=== PATIENT | male | born 1980 | race Caucasian/White ===

== ENCOUNTER 2018-11-25 18:34 | Emergency (ER) | payer OTHER ==
[~2018-11-25] VITALS: Ht 182.9 cm; Wt 81.8 kg
[2018-11-25] MEDS ORDERED: GLUCAGON,HUMAN RECOMBINANT 1 MG VIAL IVP ONE (20:15)
[2018-11-25 21:00] VITALS: BP 129/88
== END 2018-11-25 21:37 | disposition home or self-care (01) ==
LOC: EMS 18:35
DX: K21.9 Gastro-esophageal reflux disease without esophagitis (principal); Z91.018 Allergy to other foods
CPT/HCPCS: 70360